=== PATIENT | female | born 1995 | race Caucasian/White ===

== ENCOUNTER 2016-10-20 13:52 | Emergency (ER) | payer OTHER ==
--- NOTE | ~2016-10-20 | CR133 ---
[facility]. [facility] A Service of [facility] & [facility] / [facility] RADIOLOGY TEXT RESULTS PATIENT: OBDULIA MOHAN LOCATION: SED : [birth year] UNIT #: [id number] AGE: [address]: LARRY GILMORE PA-C SEX: F ORDER DR: [id number] [address] [address] [id number] MR#: [id number] Acc #: [id number] NAME: OBDULIA MOHAN. : 1995 SEX: F STUDY DATE/TIME: 10/20/2016 15:10 UNIT: SED ROOM: STUDY DESCRIPTION: CR Forearm 2 View Rt Attending Physician: Larry Gilmore Pa-C Ordering Physician: Larry Gilmore Pa-C Primary Care Physician: Primary Care Physician No MEDICAL IMAGING REPORT This report is preliminary unless electronic signature is present. EXAM Right forearm 2 views HISTORY Puncture wound from cat bite distal forearm yesterday. Pain and redness. FINDINGS AP and lateral views of the forearm show no evidence of fracture or destructive bone lesion. No periosteal elevation is seen. No radiodense foreign bodies are noted. Adjacent soft tissue structures are normal. IMPRESSION Normal forearm. Dictated by... Tino Dennis M.D. THIS IS AN ELECTRONICALLY VERIFIED REPORT Tino Dennis M.D. at 10/21/2016 12:50 PM ROS/dalia TD: 10/21/2016 06:36 JOB #: [id number] MEDICAL IMAGING REPORT Page 1 of 1
[~2016-10-20 13:52] MED LIST: AMOXICILLIN PO; COLACE PO; DEPO-PROVER150 MG/ML INJ; FLEXERIL10 MG PO; IBUPROFEN PO; IBUPROFEN600 MG PO; KEFLEX500 MG PO; LO OVRAL BCP PO; NORCO 7.5-3251 EACH PO; PAXIL40 MG PO; PROCTOFOAM-HC10 G1 MC; SILVADENE TOP; ULTRAM PO; VOLTAREN50 MG PO; ZOFRAN ODT4 MG/UDTAB PO
[2016-10-20 15:04] LABS: BASOPHIL% 0.3 % (0-2.5); DIFF IND NO; EOSINOPHIL% 0.3 % (0.0-7.0); HEMATOCRIT 38.9 % (35.0-45.0); LYMPHOCYTE# 2.1 X10e3 (1.0-3.5); LYMPHOCYTE% 15.5 % (17.0-45.0); MEAN CELL VOLUME 91.2 FL (83-96); MEAN CORPUSCULAR HEMOGLOBIN 30.5 PG (28-34); MEAN CORPUSCULAR HGB CONC 33.5 g/dL (30-36); MEAN PLATELET VOLUME 10.5 FL (6.5-11.5); MONOCYTE# 1.2 X10e3 (0-1.0); MONOCYTE% 8.6 % (3.0-12.0); NEUTROPHIL# 10.4 X10e3 (1.5-7.1); NEUTROPHIL% 75.3 % (40-75); PLATELET COUNT 158 X10e3 (140-420); RED BLOOD COUNT 4.27 X10e (3.90-5.30); RED CELL DISTRIBUTION WIDTH 12.3 % (11.0-15.5); WHITE BLOOD COUNT 13.8 X10e3 (4.0-10.5)
[2016-10-20 15:29] LABS: ALBUMIN SERUM 4.8 g/dL (3.5-5.0); BILIRUBIN,TOTAL 0.5 mg/dL (0.2-2.0); CALCIUM SERUM 9.7 mg/dL (8.4-10.2); CREATININE SERUM 0.5 mg/dL (0.6-1.4); GLOM FILT RATE Estimated 136.4 mL/min (>60); PROTEIN TOTAL SERUM 7.6 g/dL (6.0-8.3)
== END 2016-10-20 18:15 ==
LOC: SED 13:52
PROVIDERS: Physician Assistant
DX: S51.851A Open bite of right forearm, initial encounter (principal); F41.9 Anxiety disorder, unspecified; F32.9 Major depressive disorder, single episode, unspecified; Z79.899 Other long term (current) drug therapy; W55.01XA Bitten by cat, initial encounter; Y92.69 Other specified industrial and construction area as the place of occurrence of the external cause; Y99.0 Civilian activity done for income or pay
CPT/HCPCS: 36415; 73090; 80053; 83605; 85025; 87040; 96365; 96375; 99285; J1885